=== PATIENT | male | born 1940 | race Asian ===

== ENCOUNTER 2016-10-26 13:30 | Observation (INO) | payer MEDICARE ==
[~2016-10-26] VITALS: Ht 162.6 cm; Wt 58.0 kg
[2016-10-26 13:32] VITALS: BP 158/88; PULSE 78; RESP 18; O2SAT 99
--- NOTE | 2016-10-26 14:34 | ED.REPORT ---
HPI-Dizziness / Weakness Date of Service Oct 26, 2016 ED Provider: Dr. Omar Cheng M.D. The patient is a healthy 76 year old male who presents to the ED with dizziness onset 0300 this morning, upon awakening. The dizziness is described as "room- spinning," relieved with laying flat. Associated symptoms include imbalance, shakiness, nausea, and vomiting. He's had issues with walking and is unsteady on his feet. The patient denies any other complaints at this time, including no new abdominal pain, fever, chest pain, shortness of breath, constipation, diarrhea, hematuria, hematochezia, numbness, paresthesias, focal weakness, or other symptoms. He has never had similar symptoms in the past. Nursing Notes Stated Complaint: DIZZY Chief Complaint: Neuro Symptoms/ Deficits Nursing Notes Reviewed: Yes Allergies: Coded Allergies: No Known Allergies (Unverified , 10/26/16) No Active Prescriptions or Reported Meds General Time Seen by MD: 14:33 Chief Complaint Dizzy Hx Obtained From: Patient Arrived By: Walk-in Onset Occurred: 9 - 12 hours ago Symptom Duration: Since onset Severity: Current: No pain currently Severity: Maximum: No pain Relieved by: Lying flat Pertinent Negative: Relieved by nothing Recent Healthcare: No recent doctor visit Similar Sx Previous: No Past Medical History Past Medical History None reported Past Surgical History None reported Family History Mother of "female cancer" Brother also had cancer Smoking History Former Smoker Social History Other Social History: Good social support Ambulatory Status Independent Review of Systems Review of Systems Note: + Imbalance - Paresthesias Constitutional: Denies: Fever Respiratory: Denies: Non-productive cough, Shortness of breath Cardiovascular: Denies: Chest pain GI: Reports: Nausea, Vomiting, Denies: Abdominal pain, Constipation, Diarrhea, Hematochezia Neurologic: Reports: Dizziness, Shaking, Denies: Focal weakness, Numbness Complete sys rev & neg: except as marked. Male: Denies Hematuria Physical Exam Initial Vital Signs Vital Signs (First) Date Time Temp Pulse Resp B/P Pulse Ox O2 Delivery O2 Flow Rate FiO2 10/26/16 13:32 36.4 78 18 158/88 99 Room Air Initial VS: Reviewed Neck: Supple, Full range of motion Abdomen / GI: Soft, Non-tender Skin: Warm, Dry, No cyanosis Psychiatric: Mood/affect normal, Behavior normal, Normal thought content General/Constitutional: Awake, Alert Head / Eyes: Atraumatic, Normocephalic, PERRL, EOMI Respiratory / Chest: Breath sounds NL, Breath sounds = bilat, No respiratory distress Cardiovascular: Heart rate NL, Regular rhythm, Heart sounds NL Neurologic: Oriented X3, Speech NL, No motor deficits, No sensory deficits, CN II - XII intact Cerebellar Dysfunction: Negative: Finger-nose abnl, Heel-lee abnl ENT: Airway patent, Mucous membranes moist, Pharynx NL Interpretation & Diagnostics Lab Results Interpretation Result Diagram: 10/26/16 1536 10/26/16 1536 Test 10/26/16 15:36 10/26/16 19:00 White Blood Count 8.0th/mm3 (3.8-10.1) Red Blood Count 4.31mil/mm3 (4.40-5.80) Hemoglobin 13.3g/dL (13.8-17.2) Hematocrit 39.8% (41.0-50.0) Mean Corpuscular Volume 92.3fL (81-100) Mean Corpuscular Hemoglobin 30.9pg (27.0-35.0) Mean Corpuscular Hemoglobin Concent 33.4% (32.0-37.0) Red Cell Distribution Width 12.2% (12.3-15.4) Platelet Count 352bil/L (150-400) Neutrophils (%) (Auto) 83.3% (40-74) Lymphocytes (%) (Auto) 12.1% (14-46) Monocytes (%) (Auto) 4.2% (4-12) Eosinophils (%) (Auto) 0% (0-5) Basophils (%) (Auto) 0.3% (0-3) Sodium Level 136mEq/L (134-144) Potassium Level 4.0mEq/L (3.5-5.2) Chloride Level 98mEq/L (97-108) Carbon Dioxide Level 22mmol/L (18-29) Blood Urea Nitrogen 12mg/dL (8-27) Creatinine 0.56mg/dL (0.76-1.27) Estimat Glomerular Filtration Rate 150mL/min (>59) Glucose Level 119mg/dL (60-99) Calcium Level 9.3mg/dL (8.5-10.1) Magnesium Level 1.9mg/dL (1.6-2.6) Total Bilirubin 0.5mg/dL (0.0-1.2) Aspartate Amino Transf (AST/SGOT) 17U/L (0-50) Alanine Aminotransferase (ALT/SGPT) 6U/L (0-44) Alkaline Phosphatase 82U/L (25-160) Troponin T < 0.010ug/L (0.0-0.011) Total Protein 7.6g/dL (6.4-8.4) Albumin 4.0g/dL (3.4-5.0) Hold Minaya Top Tube Received (Received) Hold Urine Received (Received) ECG Interpretation ECG Interpretation: Sinus rhythm rate 66 Time: 14:24 Interpreted by: ED physician CT Head Interpretation IMPRESSION: 1. No acute intracranial abnormality. 2. Mild chronic white matter small vessel ischemic changes and cerebral volume loss. Dictated by: Tripp Costa M.D. on 10/26/2016 at 15:32 Study: Head CT no contrast Interpretation / Wet Read by: Interpret - Radiologist Re-Eval/Medical Decision Med Decision/Clinical Course In summary, 76-year-old male with no documented past medical history presenting to the ED for evaluation of what appears to be vertigo and gait instability. He first noticed this when he woke up at approximately 0300. He has not had any recent fevers, ear pain, vision changes, weight loss, headaches, or any other complaints of note. He did have some nausea and vomiting earlier today. His neurologic exam here is reassuring with normal finger to nose testing, heel- to-lee, and no nystagmus. However, despite treatment here in the ED, he is unable to ambulate here without significant difficulty. I feel that he needs an MRI to further evaluate possible stroke, however his symptoms do seem consistent w/ possible peripheral etiology. Discussed patient w/ hospitalist as per below. While stroke is possible, patient's symptoms have been going on for much longer than 4.5 hours and thus patient does not need/will not benefit from TPA at this time. Will admit for further eval and mgmt. Re-Evaluation/Progress : Time of Eval: 17:54 Patient Status: Condition improved Re-Evaluation/Progress Note: Patient rechecked. He is still dizzy upon sitting up after the meclizine. Discussed with patient lab and CT results, diagnosis, and plan for admit. Patient agrees with plan for care and all questions were addressed. Consultation : Referral / Consult Name: Deny Jay MD Consulted With: Hospitalist Call Returned at: 18:33 Mental Retardation Aide: Agrees with eval, Agrees with plan, Accepts admit Counseled Regarding: Diagnosis, Lab results, Need for admission Patient Discharge & Departure Impression: Primary Impression: Dizziness Additional Impression: Gait instability Disposition: ADMITTED TO HOSPITAL Discharge Condition All VS Reviewed: Yes Condition: Improved Scribe Attestation Portions of this note were transcribed by Ami Roman. I, Dr. Cheng, personally performed the history, physical exam, and medical decision-making; I reviewed and confirmed the accuracy of the information in the transcribed note. Signed by: Ivanna Santizo, 10/26/2016, 18:40 Omar Cheng MD Oct 26, 2016 14:34 AMI ROMAN Oct 26, 2016 14:51
--- NOTE | 2016-10-26 15:36 | DRSVH ---
PROCEDURE: CT BRAIN WITHOUT CONTRAST ([id number]) INDICATIONS: vertigo TECHNIQUE: Noncontrast 4.5 mm thick angled axial sections acquired from the foramen magnum to the vertex, with c oronal reformats. COMPARISON: None. FINDINGS: Image quality: Excellent. CSF spaces: Basal cisterns are patent. No extra-axial fluid collections. The ventricles are symmet viridiana in size and shape. There is mild cerebral volume loss, with resultant ventricular and sulcal pro minence. Brain: No intracranial hemorrhage, mass, or mass effect. There are subcortical, periventricular and deep white matter hypodensities consistent with mild chronic small vessel ischemic changes. There i s intracranial internal carotid artery atherosclerosis. Skull and face: Calvarium and visualized facial bones appear intact, without suspicious lesions. Sinuses: Visualized sinuses demonstrate mild mucosal thickening in the right maxillary sinus. Masto id air cells are clear. IMPRESSION: 1. No acute intracranial abnormality. 2. Mild chronic white matter small vessel ischemic changes and cerebral volume loss. Dictated by: Tripp Costa M.D. on 10/26/2016 at 15:32 Approved by: Tripp Costa M.D. on 10/26/2016 at 15:34
[2016-10-26 15:49] LABS: BASOPHILS % (AUTO) 0.3 % (0-3); EOSINOPHILS % (AUTO) 0 % (0-5); MONOCYTES % (AUTO) 4.2 % (4-12); Mean Corpuscular Hemoglobin 30.9 pg (27.0-35.0); Mean Corpuscular Volume 92.3 fL (81-100); NEUTROPHILS % (AUTO) 83.3 % (40-74); Platelet Count 352 bil/L (150-400)
[2016-10-26 16:14] LABS: TROPONIN T < 0.010 ug/L (0.0-0.011)
[2016-10-26 16:23] LABS: Magnesium 1.9 mg/dL (1.6-2.6)
[2016-10-26 16:34] VITALS: BP 145/60; PULSE 78; RESP 17; O2SAT 98
[2016-10-26 19:05] VITALS: BP 140/83; PULSE 76; RESP 14; O2SAT 94
[2016-10-26] MEDS ORDERED: Polyethylene Glycol (PEG) 17 Gm Powder PO PRN (20:20)
[2016-10-26] MEDS ORDERED: Ondansetron 2 mg/mL 2 mL Inj IVPUSH PRN (20:20)
[2016-10-26] MEDS ORDERED: Labetalol 5 mg/mL 4 mL Inj IVPUSH PRN (20:20)
[2016-10-26] MEDS ORDERED: Alum-Mag Hydrox-Simeth 30 mL Suspension PO PRN (20:20)
--- NOTE | 2016-10-26 20:31 | PCM.HPMED ---
Subjective Date of Service Oct 26, 2016 Primary Provider: Admitting Physician: Renan Barakat MD Primary Care Physician: Marilou Attending Physician: Renan Barakat MD Admit Status: From the Emergency Department Chief Complaint: Dizziness History of Present Illness: This is a 76-year-old male who presents with dizziness. The patient states that at approximately 3 AM this morning he began having a "spinning" sensation. The spinning sensation was associated with movement of his head and was relieved with laying down and standing still. He did not fall but stated that his balance was unsteady. He denies any previous episodes of vertigo. He describes nausea and one episode of vomiting that was nonbloody. He denies any chest pain or pressure, shortness of breath, diarrhea, constipation, numbness or tingling extremities, visual changes, headaches. In the emergency department initial vitals were temperature 36.4 Celsius, pulse 78, respiratory rate 18, blood pressure 158/88, satting at 99% on room air. Initial laboratory values show hemoglobin 13.3, hematocrit 39.8, with neutrophil 83.3 % and lymph 12.1%. BUN 12, creatinine 0.56, glucose 119. Troponin less than 0.010. EKG showed sinus rhythm with rate of 65, no axis deviation. CT of the head without contrast showed no acute intracranial abnormality and mild chronic white matter small vessel ischemic changes with cerebral volume loss. In the emergency department he was given meclizine 25 mg with minimal relief of symptoms. Review of Systems: A comprehensive review of systems was conducted with the patient and found to be negative except as above in the History of Present Illness. Allergies Coded Allergies: No Known Allergies (Unverified , 10/26/16) Home Medications None PMH History of onychomycoses Surgical History None Family History Family history of mother who of "female cancer." Brother who of stomach cancer. Social History Hx Alcohol Use: No Hx Substance Use: No Smoking Status: Former Smoker (20 pack years and quit 30 years ago) Exam Vital Signs Vital Sign - Last Date Time Temp Pulse Resp B/P Pulse Ox O2 Delivery O2 Flow Rate FiO2 10/26/16 19:05 76 14 140/83 94 Room Air 10/26/16 16:34 36.8 Exam General: No acute distress, well-developed, well-nourished, appropriately interactive HEENT: Normocephalic, atraumatic. External ears without defect. Pupils equal, round, and reactive to light and accommodation. Anicteric sclerae, moist conjunctivae, and no lid lag. Oropharynx free of erythema and cobble stoning with moist mucosa. Neck: Supple with full range of motion. No jugular venous distension. No bruits. No lymphadenopathy or thyromegaly. Cardiovascular: Regular rate and rhythm with no murmurs, rubs, or gallops appreciated Pulmonary: Clear to auscultation bilaterally with no crackles, wheezes, or rhonchi. Normal respiratory effort with no use of accessory muscles. Abdomen: Bowel tones present. Soft, nontender, nondistended. No hepatosplenomegaly or masses appreciated. Extremities: No clubbing, cyanosis, edema, or lymphadenopathy appreciated. Skin: Normal temperature, turgor, and texture; no rash, ulcers, or subcutaneous nodules appreciated. Neurological: Cranial nerves grossly intact. Normal muscle strength, tone, and bulk. Reflexes, coordination, and sensory function within normal limits. No known gait impairment. Psychiatric: Normal mood and affect. Alert and oriented to person, place, and time. Lab and Diagnostics Result Diagram: 10/26/16 1536 10/26/16 1536 X-Rays, CTs and MRIs CT of the brain without contrast on 10/26/2016: IMPRESSION: 1. No acute intracranial abnormality. 2. Mild chronic white matter small vessel ischemic changes and cerebral volume loss. Dictated by: Tripp Costa M.D. on 10/26/2016 at 15:32 Assessment & Plan This is a 76-year-old male who presents with dizziness. The patient describes the dizziness as a spinning sensation. It was not accompanied by any visual changes, headaches, numbness or tingling in extremities, weakness. This likely represents BPPV. Differential includes TIA/CVA, vestibular neuritis, otitis media, neoplasm. CT scan of the brain showed no acute intracranial abnormalities. Acute vertigo, present on admission, ongoing: -Patient continues to have vertigo that resolves with restricting movement. -This is likely due to BPPV. Physical therapy and occupational therapy will see patient in morning. -We will order MRI to rule out stroke. -Patient declines statin but conversation about this medication should be continued tomorrow. -Aspirin has been added. -Nothing by mouth until swallow study. Speech eval ordered. - Echocardiogram ordered. -Lipid panel pending. Elevated glucose, present on admission: -Glucose on admission was 118. -A1c ordered. DVT prophylaxis with enoxaparin. Patient is admitted under observation status with expected length of stay less than 2 midnights due to severity of presenting symptoms, risk of adverse event, and complexity of treatment plan. Pain Evaluation: Adequate Pain Control Resuscitation Status: CPR: Attempt Resuscitation Attending Statement The patient was seen and examined together with Dr. Galdamez on 10/26 and I agree with the history, exam and plan as outlined in the note above. Aly Galdamez DO Oct 26, 2016 20:31 Renan Barakat MD Oct 27, 2016 03:50
[2016-10-26 21:00] VITALS: BP 151/77; PULSE 67; RESP 20; O2SAT 98
[2016-10-26] MEDS: 0.9% Sodium Chloride 1,000 ML IV SCH (22:28)
[2016-10-27] VITALS (9 sets, daily range): BP systolic 116–164; BP diastolic 67–79; PULSE 54–84; RESP 15–18; O2SAT 98–99
--- NOTE | 2016-10-27 02:35 | NUR ---
Arrival to Unit Patient arrived to floor at 2044 from ED. Patient is A&OX3 and pleasant. Denies pain, CP, or SOB. Follows commands and responds to questions appropriately. Patient has equal upper extremity and lower extremity strength, and facial features are symmetrical. Also passed nurse swallow eval without any difficulties. Denies any light headedness or dizziness while in bed. Complained of slight dizziness upon standing. With 1 person assist and a FWW patient was able to ambulate to the bathroom well. IV is running NS @ 70cc/hr, BG is 98. SCDs are being worn, and [place] alarm is on. Will continue to monitor, and continue Q1 hour checks.
--- NOTE | 2016-10-27 08:42 | DRSVH ---
PROCEDURE: MRI STROKE PROTOCOL ([id number]) Pre- and post-contrast brain MRI, non-contrast brain MR angiogram, pre- and postcontrast neck MR miguel ogram INDICATIONS: 76-year-old male with vertigo. TECHNIQUE: Brain: Noncontrast axial T1 spin echo, axial T2 fast spin echo, sagittal and axial FLAIR, coronal T2 fast spin echo, axial gradient echo, axial diffusion and ADC through the brain. After the administr ation of contrast, axial 3D VIBE of the cranial vasculature and brain. Brain MRA: Non-contrast 3-D time of flight MR angiogram, with multiple vfuwoam-amtawhsst-toesxgjehr (MIP) reformats performed. Neck MRA: Axial and sagittal TruFISP through the neck. Coronal dynamic MR angiogram during administ ration of contrast in the arterial and venous phases, with 3-dimenstional rozbnjj-eimvifkyq-azonzucgg n (MIP) reformats constructed from subtraction images. COMPARISON: [facility], CT, CT BRAIN WO CON, 10/26/2016, 15:24. FINDINGS: Image quality: Excellent. BRAIN: CSF spaces: Ventricles are normal in size and shape. Basal cisterns are patent. No extra-axial flu id collections. Brain: No intracranial bleeds or mass effects. There is mild cerebral volume loss. Mild periventricu lar white matter chronic small vessel ischemic changes are present. Diffusion weighted images show n o acute ischemic insults. Brainstem appears normal. Normal intravascular flow voids are present. N o abnormal intracranial enhancement. Skull and face: Calvarial marrow signal is normal. Orbits appear normal. Sinuses: Sinuses and mastoids are clear. BRAIN MR ANGIOGRAM: Anterior circulation: Intracranial internal carotid arteries are normal in size and enhancement. Th e flow within the paired anterior cerebral arteries is normal and symmetric. The flow within the mid dle cerebral arteries is normal and symmetric. The anterior communicating artery is seen. No stenos es, occlusions, or aneurysms. Posterior circulation: The visualized portions of the vertebral arteries demonstrate normal caliber, and join to form a normal appearing basilar artery. The flow within the posterior cerebral arteries is normal and symmetric. No stenoses, occlusions, or aneurysms. NECK MR ANGIOGRAM: Carotids: Great vessels demonstrate a conventional anatomy as they arise from the aortic arch. The origins of the common carotid arteries appear patent. The calibers and courses of both common caroti d arteries are normal. The bifurcation regions appear normal bilaterally. The internal carotid mehnaz gurwinder demonstrate normal course and caliber. Posterior circulation: The origins of the vertebral arteries appear patent. More superior portions of both vertebral arteries demonstrate normal course and caliber, and join to form a normal appearing basilar artery. Miscellaneous: Subclavian arteries appear patent. Pre-contrast images through the neck show no soft tissue abnormalities. Degenerative disc disease is present in cervical spine. IMPRESSION: BRAIN MRI: 1. No acute intracranial abnormality. 2. Mild cerebral volume loss and periventricular white matter chronic small vessel ischemic changes. BRAIN MR ANGIOGRAM: No significant stenosis or occlusion in anterior or posterior circulations. NECK MR ANGIOGRAM: 1. Normal carotid arteries bilaterally. 2. Normal vertebral arteries bilaterally. The estimate of stenosis included in the report of the imaging study was calculated using the NASCET method Dictated by: Edgardo Mccall M.D. on 10/27/2016 at 7:40 Transcribed by: VICTOR MANUEL on 10/27/2016 at 7:42 Approved by: Edgardo Mccall M.D. on 10/27/2016 at 19:25
--- NOTE | 2016-10-27 10:06 | NUR ---
Evaluation completed. Please go to "Notes" then click on "Assessments and Notes" (bottom left corner of screen). Then select appropriate discipline tab on top of screen.
--- NOTE | 2016-10-27 11:40 | NUR ---
Case Management: GARRY given and explained to pt. Patricia JIMENEZ RN
[2016-10-27] MEDS: 0.9% Sodium Chloride 1,000 ML IV SCH (12:13)
--- NOTE | 2016-10-27 12:16 | NUR ---
Social Work: Initial Assessment/Readiness for Discharge D: EMR reviewed. Pt is a 76 y/o male Aries for vertigo, gait instability per H&P. SW met with pt at bedside to conduct initial assessment. Pt was alert and oriented x3. SW explained role and wrote phone number on white board. Pt's insurance is Medicare. Pt does not have a PCP. Pt stated he is currently working to set up a PCP who speaks [place] at [facility] in [place]. Pt declined SW assistance in setting up PCP. Pt's primary contact his is spouse, Irma Thompson ([phone]) who can be contacted for discharge planning. SW provided DPOA/advanced directive ppw and encouraged pt to provide a copy to the hospital when completed. Pt has no Hx of HH or SNF. Pt has no LTC insurance or VA benefits. Pt is independent with ADLs. Pt does not use or own any DME. Pt drives. Pt is independent at baseline. Pt lives with his spouse in a single-story home with 2 steps to enter in [place]. Pt confirmed that his spouse will provide transport home via POV when pt is medically stable to discharge. SW does not anticipate any discharge needs at this time but will continue to follow EMR if needs arise. A: Pt who is independent at baseline P: Pt confirmed that his spouse will provide transport home via POV when pt is medically stable to discharge. SW does not anticipate any discharge needs at this time but will continue to follow EMR if needs arise. CLARA Simons Addendum: 10/27/16 at 1222 by FARHAT OLIVA Amended: Links added.
[2016-10-27] MEDS ORDERED: ONDA4TAB6 PO (17:25)
[2016-10-27] MEDS ORDERED: MECL-114 PO (17:26)
[2016-10-27] MEDS ORDERED: ASPI-973 PO (17:26)
--- NOTE | 2016-10-27 17:29 | PCM.DIMED ---
Discharge Instructions Date of Service Oct 27, 2016 Dates of Hospitalization Oct 26, 2016 at 19:55 Discharge Diagnosis Discharge Diagnosis BPPV, dehydration Diet Discharge Diet: No restrictions Activity Discharge Activity: Limited until seen by PCP (please do not drive till seen by PCP and cleared by PCP) Call your provider Call your provider for: Fever or Chills, Shortness of breath, Bleeding, Chest pain, Vomitting, Excessive diarrhea Patient Instructions Patient Instructions Please drink plenty of fluids and stay hydrated. Avoid quick movements, quickly rising from the bed Please follow up with o/p PT/OT for vestibular therapy. My drink caffeine twice a day Keep head of bed elevated 20 degrees Follow-up plan F/U with PCP in one week F/U with PT/OT for 3 weeks of vestibular therapy Fanta Galloway DO Oct 27, 2016 17:29
--- NOTE | 2016-10-27 17:33 | PCM.DC.MED ---
Discharge Summary Date of Service Oct 27, 2016 Dates of Hospitalization Date of Hospital Admission Oct 26, 2016 at 19:55 Date of Discharge: Oct 27, 2016 Providers: Admitting Physician: Renan Barakat MD Primary Care Physician: Marilou Attending Physician: Renan Barakat MD Diagnosis at Time of Discharge Diagnosis at Time of Discharge BPPV, dehydration Consultations PT/OT Procedures XRay, CTs & MRIs CT of the brain without contrast on 10/26/2016: IMPRESSION: 1. No acute intracranial abnormality. 2. Mild chronic white matter small vessel ischemic changes and cerebral volume loss. Dictated by: Tripp Costa M.D. on 10/26/2016 at 15:32 PROCEDURE: MRI STROKE PROTOCOL ([id number]) Pre- and post-contrast brain MRI, non-contrast brain MR angiogram, pre- and postcontrast neck MR angiogram INDICATIONS: 76-year-old male with vertigo. IMPRESSION: BRAIN MRI: 1. No acute intracranial abnormality. 2. Mild cerebral volume loss and periventricular white matter chronic small vessel ischemic changes. BRAIN MR ANGIOGRAM: No significant stenosis or occlusion in anterior or posterior circulations. NECK MR ANGIOGRAM: 1. Normal carotid arteries bilaterally. 2. Normal vertebral arteries bilaterally. The estimate of stenosis included in the report of the imaging study was calculated using the NASCET method Dictated by: Edgardo Mccall M.D. on 10/27/2016 at 7:40 Transcribed by: VICTOR MANUEL on 10/27/2016 at 7:42 Approved by: Edgardo Mccall M.D. on 10/27/2016 at 19:25 Cardiac Echo Impression pending result at the time of d/c but avaialble at the time of this summary, we request that PCP reviews this with patient: Echocardiogram Report Name: JULIO CHIANG Study Date: 10/27/2016 Height: 64 in Hospital Exam Location: [facility] Weight: 128 lb Gender: Male BSA: 1.6 m2 : 1940 Age: 76 yrs BP: 148/72 mmHg Reason For Study: Vertigo Ordering Physician: Performed By: [facility] Interpretation Summary 1. Normal left ventricular size, wall thickness and systolic function with an estimated EF of 60-65% 2. Normal right ventricular size and systolic function. Estimated right atrial pressure is low. 3. No evidence for valvular pathology. 4. Saline contrast showed no evidence for an interatrial shunt. Procedure: A two-dimensional transthoracic echocardiogram with color flow and Doppler was performed. The study quality was technically adequate. There is no prior echocardiogram noted for this patient. The patient was in normal sinus rhythm during the exam. Left Ventricle: The left ventricle is normal in size. There is normal left ventricular wall thickness. The ejection fraction is estimated to be 60-65%. No focal wall motion abnormalities appreciated. The E/A ratio is reversed with an elevated E/E', suggesting impaired early relaxation of the left ventricle with possible increased filling pressures. Right Ventricle: The right ventricle is normal size. The right ventricular systolic function is normal. Atria: The left atrium is moderately dilated. Right atrial size is normal. Injection of contrast documented no interatrial shunt. Mitral Valve: The mitral valve is normal in structure and function. There is trace mitral regurgitation. Aortic Valve: The aortic valve opens well. The aortic valve is trileaflet. No aortic regurgitation is present. Tricuspid Valve: The tricuspid valve leaflets are thin and pliable. There is trace tricuspid regurgitation. The right ventricular systolic pressure is estimated at 32 mmHg assuming a right atrial pressure of 3 mm Hg. Pulmonic Valve: The pulmonic valve is not well seen, but is grossly normal. There is no pulmonic valvular regurgitation. Great Vessels: The aortic root is normal size. The dimensions of the ascending aorta are normal. The IVC is of normal diameter and collapses greater than 50% with a sniff. This suggests a low right atrial pressure of 3 mm Hg. Pericardium/ Pleura There is no pericardial effusion. There is no pleural effusion. MMode/2D Measurements & Calculations LVIDd: 4.6 cm LA dimension: 4.4 cm RA long axis Ao root diam LVIDs: 2.5 cm FS: 46.4 % LA A2 area: 21.8 cm RA area Aortic Jxn: 2.5 cm IVSd: 0.91 cm LA A4 area: 20.2 cm Ao Arch Diam (Prox LVPWd: 0.95 cm LA length (vol) : 14.9 cm Trans): 2.4 cm RA vol LA vol: 71.2 ml : 41.6 ml LA vol index RA : 25.7 mm/ RVDd major IVC diam: 1.3 cm : 5.0 cm LV stubbs. diameter/BSA LV sys. diameter/BSA RVD1 (basal) RVD2 (mid): 3.1 cm (cm/m^2): 2.9 (cm/m^2): 1.5 Doppler Measurements & Calculations LVOT Max Filemon MV E max filemon MV E/A: 0.88 TR max filemon : 178.8 cm/sec : 83.7 cm/sec Med Peak E' Filemon : 269.5 cm/sec MV A max filemon TR max PG : 94.9 cm/sec E/E' med: 10.8 : 29.1 mmHg MV P1/2t: 77.2 msec Lat Peak E' Filemon PA V2 max : 94.4 cm/sec E/E' lat: 9.4 PA mean PG E/e' average PA Accel Time MV A dur: 0.12 sec : 0.30 sec MV dec time MV P1/2t max filemon LV V1 max PG PA V2 mean : 0.26 sec : 63.1 cm/sec MVA(P1/2t): 2.8 cm2 LV V1 VTI: 37.0 cm Reading Physician:06:51 PM Brief History This is a 76-year-old male who presents with dizziness. The patient states that at approximately 3 AM this morning he began having a "spinning" sensation. The spinning sensation was associated with movement of his head and was relieved with laying down and standing still. He did not fall but stated that his balance was unsteady. He denies any previous episodes of vertigo. He describes nausea and one episode of vomiting that was nonbloody. He denies any chest pain or pressure, shortness of breath, diarrhea, constipation, numbness or tingling extremities, visual changes, headaches. In the emergency department initial vitals were temperature 36.4 Celsius, pulse 78, respiratory rate 18, blood pressure 158/88, satting at 99% on room air. Initial laboratory values show hemoglobin 13.3, hematocrit 39.8, with neutrophil 83.3 % and lymph 12.1%. BUN 12, creatinine 0.56, glucose 119. Troponin less than 0.010. EKG showed sinus rhythm with rate of 65, no axis deviation. CT of the head without contrast showed no acute intracranial abnormality and mild chronic white matter small vessel ischemic changes with cerebral volume loss. In the emergency department he was given meclizine 25 mg with minimal relief of symptoms. Hospital Course This is a 76-year-old male who presents with dizziness. The patient describes the dizziness as a spinning sensation. It was not accompanied by any visual changes, headaches, numbness or tingling in extremities, weakness. This likely represents BPPV. Differential includes TIA/CVA, vestibular neuritis, otitis media, neoplasm. CT scan of the brain showed no acute intracranial abnormalities. Acute vertigo, present on admission, ongoing: -Patient continues to have vertigo that resolves with restricting movement. -This is likely due to BPPV. Physical therapy and occupational therapy will see patient in morning. -MRI ruled out stroke. -Daily aspirin -Speech eval ordered: Not considered at risk for aspiration -Echocardiogram ordered: result pending, PCP is requested to review with patient -Lipid panel : patient may benefit from a statin but he declined -On the day of discharge, patient is asking to be sent home, he does not know why he has to continue to stay as he feels much better. Did not want to wait for the echo result. He feels he can set up PT/OT by himself. Counseled him on the need for a PCP, asked him to go to [facility]. -- I have asked him to maintain adequate hydration, avoid quick neck turning and quickly rising from the bed. He may use coffee. He may take meclizine PRN Elevated glucose, present on admission: -Glucose on admission was 118. -A1c ordered.6 DVT prophylaxis with enoxaparin. Patient is admitted under observation status with expected length of stay less than 2 midnights due to severity of presenting symptoms, risk of adverse event, and complexity of treatment plan. Exam Vital Signs (Last) Date Time Temp Pulse Resp B/P Pulse Ox O2 Delivery O2 Flow Rate FiO2 10/27/16 15:25 36.4 84 18 164/72 98 Room Air Exam General: No acute distress, well-developed, well-nourished, appropriately interactive HEENT: Normocephalic, atraumatic. External ears without defect. Pupils equal, round, and reactive to light and accommodation. Anicteric sclerae, moist conjunctivae, and no lid lag. Oropharynx free of erythema and cobble stoning with moist mucosa. Neck: Supple with full range of motion. Cardiovascular: Regular rate and rhythm with no murmurs, rubs, or gallops appreciated Pulmonary: Clear to auscultation bilaterally with no crackles, wheezes, or rhonchi. Normal respiratory effort with no use of accessory muscles. Abdomen: non-distended Extremities: No clubbing, cyanosis, edema appreciated. Skin: Normal temperature, turgor, and texture Neurological: Cranial nerves grossly intact. Normal muscle strength, tone, and bulk. Romberg's test revealed no arm drift but slight unbalance. He walked without showing instability. Alternating hands, finger to nose and heel to lee are unremarkable. Psychiatric: Normal mood and affect. Alert and oriented to person, place, and time. Test 10/26/16 15:36 10/26/16 19:00 White Blood Count 8.0th/mm3 (3.8-10.1) Red Blood Count 4.31mil/mm3 (4.40-5.80) Hemoglobin 13.3g/dL (13.8-17.2) Hematocrit 39.8% (41.0-50.0) Mean Corpuscular Volume 92.3fL (81-100) Mean Corpuscular Hemoglobin 30.9pg (27.0-35.0) Mean Corpuscular Hemoglobin Concent 33.4% (32.0-37.0) Red Cell Distribution Width 12.2% (12.3-15.4) Platelet Count 352bil/L (150-400) Neutrophils (%) (Auto) 83.3% (40-74) Lymphocytes (%) (Auto) 12.1% (14-46) Monocytes (%) (Auto) 4.2% (4-12) Eosinophils (%) (Auto) 0% (0-5) Basophils (%) (Auto) 0.3% (0-3) Sodium Level 136mEq/L (134-144) Potassium Level 4.0mEq/L (3.5-5.2) Chloride Level 98mEq/L (97-108) Carbon Dioxide Level 22mmol/L (18-29) Blood Urea Nitrogen 12mg/dL (8-27) Creatinine 0.56mg/dL (0.76-1.27) Estimat Glomerular Filtration Rate 150mL/min (>59) Glucose Level 119mg/dL (60-99) Hemoglobin A1c 6.0% (4.8-5.6) Calcium Level 9.3mg/dL (8.5-10.1) Magnesium Level 1.9mg/dL (1.6-2.6) Total Bilirubin 0.5mg/dL (0.0-1.2) Aspartate Amino Transf (AST/SGOT) 17U/L (0-50) Alanine Aminotransferase (ALT/SGPT) 6U/L (0-44) Alkaline Phosphatase 82U/L (25-160) Troponin T < 0.010ug/L (0.0-0.011) Total Protein 7.6g/dL (6.4-8.4) Albumin 4.0g/dL (3.4-5.0) Triglycerides Level 77mg/dL (0-149) Cholesterol Level 209mg/dL (100-199) LDL Cholesterol, Calculated 121.600mg/dL (0-99) VLDL Cholesterol 15.400mg/dL HDL Cholesterol 72mg/dL (>39) Cholesterol/HDL Ratio 2.90 (0.0-4.4) Hold Minaya Top Tube Received (Received) Hold Urine Received (Received) Discharge Medications Discharge Medications Aspirin (Aspirin) 81 Mg Tablet 81 MG PO DAILY Prescribed by: FANTA MUÑOZ DO Meclizine (Bonine) 25 Mg Tab.chew 25 MG PO TID Prescribed by: FANTA MUÑOZ DO As needed Ondansetron (Zofran) 4 Mg Tablet 4 MG PO Q4H PRN PRN For Nausea Prescribed by: FANTA MUÑOZ DO Followup Plan Follow-up plan F/U with PCP in one week F/U with PT/OT for 3 weeks of vestibular therapy Discharge Diet: No restrictions Discharge Activity: Limited until seen by PCP (please do not drive till seen by PCP and cleared by PCP) Patient Instructions Please drink plenty of fluids and stay hydrated. Avoid quick movements, quickly rising from the bed Please follow up with o/p PT/OT for vestibular therapy. My drink caffeine twice a day Keep head of bed elevated 20 degrees Time spent 35 min Fanta Muñoz DO Oct 27, 2016 17:33
--- NOTE | 2016-10-27 18:52 | DRSVH ---
[facility] [address] [place] [address] Echocardiogram Report Name: JULIO CHIANG Study Date: 10/27/2016 Height: 64 in Hospital Exam Location: [facility] Weight: 128 lb Gender: Male BSA: 1.6 m2 : 1940 Age: 76 yrs BP: 148/72 mmHg Reason For Study: Vertigo Ordering Physician: Performed By: [facility] Interpretation Summary 1. Normal left ventricular size, wall thickness and systolic function with an estimated EF of 60-65% 2. Normal right ventricular size and systolic function. Estimated right atrial pressure is low. 3. No evidence for valvular pathology. 4. Saline contrast showed no evidence for an interatrial shunt. Procedure: A two-dimensional transthoracic echocardiogram with color flow and Doppler was performed. The study quality was technically adequate. There is no prior echocardiogram noted for this patient. The patient was in normal sinus rhythm during the exam. Left Ventricle: The left ventricle is normal in size. There is normal left ventricular wall thickness. The ejection fraction is estimated to be 60-65%. No focal wall motion abnormalities appreciated. The E/A ratio is reversed with an elevated E/E', suggesting impaired early relaxation of the left ventricle with possible increased filling pressures. Right Ventricle: The right ventricle is normal size. The right ventricular systolic function is normal. Atria: The left atrium is moderately dilated. Right atrial size is normal. Injection of contrast documented no interatrial shunt. Mitral Valve: The mitral valve is normal in structure and function. There is trace mitral regurgitation. Aortic Valve: The aortic valve opens well. The aortic valve is trileaflet. No aortic regurgitation is present. Tricuspid Valve: The tricuspid valve leaflets are thin and pliable. There is trace tricuspid regurgitation. The right ventricular systolic pressure is estimated at 32 mmHg assuming a right atrial pressure of 3 mm Hg. Pulmonic Valve: The pulmonic valve is not well seen, but is grossly normal. There is no pulmonic valvular regurgitation. Great Vessels: The aortic root is normal size. The dimensions of the ascending aorta are normal. The IVC is of normal diameter and collapses greater than 50% with a sniff. This suggests a low right atrial pressure of 3 mm Hg. Pericardium/ Pleura There is no pericardial effusion. There is no pleural effusion. MMode/2D Measurements & Calculations LVIDd: 4.6 cm LA dimension: 4.4 cm RA long axis Ao root diam LVIDs: 2.5 cm FS: 46.4 % LA A2 area: 21.8 cm RA area Aortic Jxn: 2.5 cm IVSd: 0.91 cm LA A4 area: 20.2 cm Ao Arch Diam (Prox LVPWd: 0.95 cm LA length (vol) : 14.9 cm Trans): 2.4 cm RA vol LA vol: 71.2 ml : 41.6 ml LA vol index RA : 25.7 mm/ RVDd major IVC diam: 1.3 cm : 5.0 cm LV stubbs. diameter/BSA LV sys. diameter/BSA RVD1 (basal) RVD2 (mid): 3.1 cm (cm/m^2): 2.9 (cm/m^2): 1.5 Doppler Measurements & Calculations LVOT Max Filemon MV E max filemon MV E/A: 0.88 TR max filemon : 178.8 cm/sec : 83.7 cm/sec Med Peak E' Filemon : 269.5 cm/sec MV A max filemon TR max PG : 94.9 cm/sec E/E' med: 10.8 : 29.1 mmHg MV P1/2t: 77.2 msec Lat Peak E' Filemon PA V2 max : 94.4 cm/sec E/E' lat: 9.4 PA mean PG E/e' average PA Accel Time MV A dur: 0.12 sec : 0.30 sec MV dec time MV P1/2t max filemon LV V1 max PG PA V2 mean : 0. sec : 63.1 cm/sec MVA(P1/2t): 2.8 cm2 LV V1 VTI: 37.0 cm Reading Physician:06:51 PM
--- NOTE | 2016-10-27 20:07 | NUR ---
Discharge Pt. discharged at 1956 with . Pt. wanted number for [facility]TTONI[facility], as well as [facility] which was given. Pt's IV d/c'd with catheter intact. Pt. wheeled out with .
== END 2016-10-27 20:26 | disposition home or self-care (01) ==
LOC: SED 13:30 → OSC 19:55
PROVIDERS: ADMIT Hospitalist; ATTEND Hospitalist
DX: H81.10 Benign paroxysmal vertigo, unspecified ear (principal); E86.0 Dehydration
CPT/HCPCS: 36415; 70450; 70549; 70553; 80053; 80061; 83036; 83735; 84484; 85025; 92610; 93005; 97162; 99285; A9585; C8929; G0378; G8978; G8979; G8996; G8997; J1650; J7030